=== PATIENT | female | born 1980 | race Caucasian/White ===

== ENCOUNTER 2018-06-06 06:51 | Inpatient (IN) | payer MEDICARE, MEDICAID ==
[2018-06-02 10:26] LABS: BASOPHILS # (AUTO) 0.1 X10'3 (0-0.2); BASOPHILS % (AUTO) 0.8 % (0-1); EOSINOPHILS # (AUTO) 0.1 X10'3 (0-0.9); EOSINOPHILS % (AUTO) 2.4 % (0-6); LYMPHOCYTES # (AUTO) 1.8 X10'3 (1.1-4.8); LYMPHOCYTES % (AUTO) 29.7 % (21-51); MEAN CORPUSCULAR HEMOGLOBIN 31.8 PG (27.0-31.0); MEAN CORPUSCULAR HGB CONC 33.4 % (33.0-36.5); MEAN PLATELET VOLUME 8.3 FL (7.4-10.4); MONOCYTES # (AUTO) 0.5 X10'3 (0-0.9); MONOCYTES % (AUTO) 7.7 % (2-12); NEUTROPHILS # (AUTO) 3.6 X10'3 (1.8-7.7); NEUTROPHILS % (AUTO) 59.4 % (42-75); PRE OP HEMATOCRIT 38.6 % (35.0-45.0); PRE OP HEMOGLOBIN 12.9 g/dL (12.0-16.0); PRE OP PLATELET COUNT 326 X10'3 (140-440); RED BLOOD COUNT 4.06 X10'6 (4.20-5.60); RED CELL DISTRIBUTION WIDTH 13.8 % (11.5-14.5)
[2018-06-02 10:41] LABS: ALBUMIN 3.7 G/DL (3.4-5.0); ALBUMIN/GLOBULIN RATIO 1.1 (1.1-1.5); ALKALINE PHOSPHATASE 72 IU/L (46-116); BLOOD UREA NITROGEN 19 MG/DL (7-18); BUN/CREATININE RATIO 30.6 (6.6-38.0); CALCIUM 8.7 MG/DL (8.5-10.1); CHLORIDE 108 MMOL/L (99-107); CREATININE 0.62 MG/DL (0.40-0.90); PRE OP ALT 31 U/L (30-65); PRE OP ANION GAP 11 (8-16); PRE OP AST 20 U/L (10-37); PRE OP BILIRUB, TOTAL 0.3 MG/DL (0.0-1.0); PRE OP GLUCOSE 104 MG/DL (70-104); PRE OP POTASSIUM 4.1 MMOL/L (3.4-5.1); PRE OP SODIUM 144 MMOL/L (135-145); TOTAL CARBON DIOXIDE 25.5 MMOL/L (24-32); TOTAL PROTEIN 7.1 G/DL (6.4-8.2); eGFR > 90 ML/MIN
[2018-06-06] VITALS (17 sets, daily range): BP systolic 91–150; BP diastolic 46–88
[~2018-06-06] VITALS: Ht 172.7 cm; Wt 87.5 kg
[~2018-06-06 06:51] MED LIST: CARB1TAB44 PO; CARI250T PO; CYAN500011 PO; DULO-31 PO; ERGO500014 PO; FURO40TA4 PO; LEVO50TA PO; MULT-1074 PO; POTA8TAB3 PO; TOPI50TA24 PO; VITA400C67 PO; cefazolin/dext.iso 2gm/100 ML IV ONE; famotidine 20mg tablet PO ONE; ringers solution, lacted 1,000 ML IV SCH; vancomycin inj 1,500 MG in normal saline 300ml IV soln IV ONE
[2018-06-06] MEDS ORDERED: LEVO1TAB63 (07:48)
[2018-06-06] MEDS ORDERED: ceFAZolin 1000mg inj ONE (09:34)
[2018-06-06] MEDS ORDERED: ROPIVAcaine 0.5% (5mg/ml) 30ml vial ONE ×2 (09:34→10:26)
[2018-06-06] MEDS ORDERED: ketorolac trometh. 30mg/ml inj. ONE (09:34)
[2018-06-06] MEDS ORDERED: tranexamic acid inj. 900 MG in normal saline 100ml IV soln 100 ML IV ONE ×5 (09:40→16:00)
[2018-06-06] MEDS ORDERED: sevoflurane 250ml liquid IH ONE (10:17)
[2018-06-06] MEDS ORDERED: MIDAZolam 5mg/5ml vial ONE (10:26)
[2018-06-06] MEDS ORDERED: fentaNYL/PF 50MCG/1 ML 2ML syringe ONE (10:26)
[2018-06-06] MEDS ORDERED: ringers solution, lacted 1,000 ML IV SCH (11:28)
[2018-06-06] MEDS ORDERED: meperidine/PF 25mg/ml syringe IV PRN ×3 (11:30)
[2018-06-06] MEDS ORDERED: ondansetron/PF 4mg/2ml inj IV PRN ×2 (11:30→13:10)
[2018-06-06] MEDS ORDERED: proCHLORperazine 10 MG/2 ml inj IV PRN (11:30)
[2018-06-06] MEDS ORDERED: morphine 4 MG/ML inj SYRINge IV PRN ×2 (11:30)
[2018-06-06] MEDS ORDERED: ROPIVAcaine 0.2%/PF PAIN PUMP 550 ML IJ SCH (11:55)
[2018-06-06] MEDS ORDERED: dexamethasone sod phosphate 4mg/ml inj. ONE (12:52)
[2018-06-06] MEDS ORDERED: propofol inj 20 ML IV ONE ×2 (12:52)
[2018-06-06] MEDS ORDERED: ondansetron/PF 4mg/2ml inj ONE (12:52)
--- NOTE | 2018-06-06 12:55 | NUR ---
Received from OR via , accompanied by Anesthesiologist DR STARKEY and report given by Anesthesiolgist. AWAKENS TO VOICE. VITALS STABLE. DRESSING DI. DANA PAIN. LUE IN SIMPLE SLING. FINGERS WARM AND PINK.
[2018-06-06] MEDS ORDERED: HYDROmorphone 1 mg/ml syringe IV PRN (13:10)
[2018-06-06] MEDS ORDERED: diphenhydrAMINE 25mg capsule PO PRN ×2 (13:10)
[2018-06-06] MEDS ORDERED: CARISOPRODOL PO PRN (13:10)
[2018-06-06] MEDS ORDERED: oxyCODONE IR 5mg (immed. release) tablet PO PRN (13:10)
[2018-06-06] MEDS ORDERED: HYDROmorphone inj. 0.5 MG/0.5 ML DISP.SYRIN IV PRN (13:10)
[2018-06-06] MEDS ORDERED: acetaminophen 325mg tablet PO PRN ×2 (13:10→16:43)
[2018-06-06] MEDS ORDERED: bisacodyl 10mg suppository rectal RC PRN (13:10)
[2018-06-06] MEDS ORDERED: magnesium hydroxide 30ml (MOM) UD suspension PO PRN (13:10)
[2018-06-06] MEDS ORDERED: cyclobenzaprine 10mg tablet PO PRN (13:30)
[2018-06-06] MEDS: acetaminophen 325mg tablet PO SCH ×2 (14:00→20:30)
--- NOTE | 2018-06-06 14:05 | NUR ---
Report called to receiving nurse. Transferred via BED Belongings . Special Issues communicated to receiving nurse. AWAKE AND ORIWENTED. VITALS STABLE. DRESSING DI. DANA PAIN TO ORTHO RM [id number] AT THIS TIME.
--- NOTE | 2018-06-06 14:15 | NUR ---
ASSUMED CARE, RECEIVED REPORT FROM MARIA VICTORIA IVY PT A&O X4, REPORTS 0/10 PAIN, POST OP VSS STARTED, FAMILY AT BEDSIDE, WILL CONTINUE TO MONITOR.
[2018-06-06] MEDS: ketorolac tromethamine 15mg/ml inj. IV SCH ×2 (15:01→20:28)
[2018-06-06] MEDS: potassium cl 20mEq in 1/2 NS 1,000 ML IV SCH ×3 (16:14→23:38)
[2018-06-06] MEDS ORDERED: CARI350T PO (16:41)
[2018-06-06] MEDS: ceFAZolin 1GM/D5W- ADD-VANTAGE 50 ML IV SCH ×2 (16:58→23:55)
--- NOTE | 2018-06-06 18:05 | NUR ---
Problems reprioritized. Patient report given, questions answered & plan of care reviewed with CHRISTOFER IVY.
--- NOTE | 2018-06-06 18:40 | NUR ---
Patient in room ORTHO 4016. I have received report from BIJU Mack and had the opportunity to ask questions and assume patient care. Patient sleeping at this time.
[2018-06-06] MEDS ORDERED: VITAMIN E ACETATE PO SCH (20:00)
[2018-06-06] MEDS ORDERED: vancomycin/NS 1 GM ADD-VANTAGE 250 ML IV SCH (20:00)
[2018-06-06] MEDS ORDERED: TOPIRAMATE PO SCH (20:00)
[2018-06-06] MEDS: duloxetine 30mg CAPSULE.DR PO SCH (20:28)
[2018-06-06] MEDS: topiramate 25mg tablet PO SCH (20:29)
[2018-06-06] MEDS: potassium chloride 8mEq ER tablet PO SCH (20:30)
[2018-06-06] MEDS: vitamin E 400 unit capsule PO SCH (20:30)
[2018-06-06] MEDS: gabapentin 300mg capsule PO SCH (20:31)
[2018-06-06] MEDS ORDERED: carbidoba-levodopa 25-100mg tablet PO SCH (21:00)
[2018-06-06] MEDS ORDERED: LEVODOPA PO SCH (21:00)
[2018-06-06] MEDS ORDERED: CARBIDOPA PO SCH (21:00)
[2018-06-06] MEDS ORDERED: sennosides 8.6mg tablet PO SCH (21:00)
[2018-06-06] MEDS ORDERED: mag hydrox/Alum hydrox/simeth 30ml oral suspension PO ONE (21:40)
[2018-06-07] MEDS: acetaminophen 325mg tablet PO SCH ×3 (01:24→13:29)
[2018-06-07] MEDS: ketorolac tromethamine 15mg/ml inj. IV SCH ×2 (01:24→08:15)
[2018-06-07] MEDS: potassium cl 20mEq in 1/2 NS 1,000 ML IV SCH (04:00)
[2018-06-07 06:00] VITALS: BP 95/52
--- NOTE | 2018-06-07 06:20 | NUR ---
Problems reprioritized. Patient report given, questions answered & plan of care reviewed with BIJU Alvarez.
--- NOTE | 2018-06-07 06:30 | NUR ---
Assumed care of pt. Pt awake and alert. Pt reported L shoulder pain. ON Q Pump increased to 8ml/hr per protocol for pain. Powder pack also changed for comfort.
[2018-06-07] MEDS ORDERED: levoTHYROXINE 25mcg tablet PO SCH (07:00)
[2018-06-07 07:08] LABS: BASOPHILS % (AUTO) 0.1 % (0-1); EOSINOPHILS # (AUTO) 0.2 X10'3 (0-0.9); EOSINOPHILS % (AUTO) 1.5 % (0-6); HEMATOCRIT 29.2 % (35.0-45.0); HEMOGLOBIN 10.1 g/dl (12.0-16.0); LYMPHOCYTES # (AUTO) 1.8 X10'3 (1.1-4.8); MEAN CORPUSCULAR HEMOGLOBIN 32.6 PG (27.0-31.0); MEAN CORPUSCULAR HGB CONC 34.5 % (33.0-36.5); MEAN CORPUSCULAR VOLUME 94.5 FL (78-98); MEAN PLATELET VOLUME 9.1 FL (7.4-10.4); MONOCYTES # (AUTO) 0.6 X10'3 (0-0.9); MONOCYTES % (AUTO) 5.9 % (2-12); NEUTROPHILS # (AUTO) 8.2 X10'3 (1.8-7.7); NEUTROPHILS % (AUTO) 75.5 % (42-75); PLATELET COUNT 224 X10'3 (140-440); RED BLOOD COUNT 3.09 X10'6 (4.20-5.60); RED CELL DISTRIBUTION WIDTH 13.5 % (11.5-14.5); WHITE BLOOD COUNT 10.8 X10'3 (4.5-11.0)
[2018-06-07 07:30] LABS: ANION GAP 9 (8-16); CHLORIDE 108 MMOL/L (99-107); POTASSIUM 3.8 MMOL/L (3.5-5.1); SODIUM 139 MMOL/L (135-145); TOTAL CARBON DIOXIDE 21.7 MMOL/L (24-32)
[2018-06-07] MEDS ORDERED: CYANOCOBALAMIN PO SCH (08:00)
[2018-06-07] MEDS ORDERED: multivitamins, therapeutics tablet PO SCH (08:00)
[2018-06-07] MEDS ORDERED: MULTIVITAMIN PO SCH (08:00)
[2018-06-07] MEDS ORDERED: furosemide 40mg tablet PO SCH (08:00)
[2018-06-07] MEDS ORDERED: cyanocobalamin 500mcg tablet PO SCH (08:00)
[2018-06-07] MEDS ORDERED: non-formulary drug (Levothyroxine Sodium (Synthroid) 1 TAB) PO SCH (08:00)
[2018-06-07] MEDS: gabapentin 300mg capsule PO SCH ×2 (08:11→13:29)
[2018-06-07] MEDS: duloxetine 30mg CAPSULE.DR PO SCH (08:11)
[2018-06-07] MEDS: potassium chloride 8mEq ER tablet PO SCH ×2 (08:12→13:29)
[2018-06-07] MEDS: topiramate 25mg tablet PO SCH (08:14)
[2018-06-07] MEDS: vitamin E 400 unit capsule PO SCH (08:25)
[2018-06-07] MEDS ORDERED: aspirin 325mg tablet PO SCH (08:30)
[2018-06-07] MEDS: oxyCODONE IR 5mg (immed. release) tablet PO PRN ×2 (09:22→13:29)
--- NOTE | 2018-06-07 09:30 | NUR ---
ON Q pump increased to 10ml/hr for L Shoulder pain.
[2018-06-07 10:09] VITALS: BP 97/53
--- NOTE | 2018-06-07 11:35 | NUR ---
ON Q Pump increased to 12ml/hr for continued L Shoulder pain. Oxy IR 10mg given previously as well for pain management.
--- NOTE | 2018-06-07 14:06 | NUR ---
Pt s/p surgery to left shoulder. Pt currently on a regular diet with documented PO intake 100% meeting nutrient needs with adequate protein to aid in wound healing. Will continue to follow. Addendum: 06/07/18 at [address] Amended: Links added.
[2018-06-07 14:15] VITALS: BP 103/55
[2018-06-07] MEDS ORDERED: celeCOXIB 100mg capsule PO SCH (20:00)
[2018-06-08] MEDS ORDERED: acetaminophen 325mg tablet PO PRN (13:10)
== END 2018-06-07 14:25 | disposition home or self-care (01) | DRG 483 ==
LOC: PAS IN 06:51 → EDSTATUS 10:00 → ORTHO 4S 14:15
PROVIDERS: ADMIT Orthopaedic Surgery; ATTEND Orthopaedic Surgery
PROC: 0RRK0JZ Replacement of Left Shoulder Joint with Synthetic Substitute, Open Approach (ICD-10-PCS; principal; 2018-06-06 10:17)
DX: M19.112 Post-traumatic osteoarthritis, left shoulder (principal); D62 Acute posthemorrhagic anemia; E03.9 Hypothyroidism, unspecified; G89.29 Other chronic pain; M79.7 Fibromyalgia; E11.9 Type 2 diabetes mellitus without complications
CPT/HCPCS: 36415; 80051; 80053; 82948; 85025; 87070; 97110; 97116; 97161; 97530; A4565; A7000; C1713; C1776; G0378; J0690; J1100; J1885; J2250; J2405; J2704; J2795; J3010; J3370; J7030; J7040; J7120

== ENCOUNTER 2020-07-09 00:26 | Emergency (ER) | payer MEDICARE, MEDICAID ==
[~2020-07-09] VITALS: Ht 170.2 cm; Wt 90.0 kg
[~2020-07-09 00:26] MED LIST changes: -CARI250T PO; +CARI350T PO; +LEVO1TAB63; -cefazolin/dext.iso 2gm/100 ML IV ONE; -famotidine 20mg tablet PO ONE; -ringers solution, lacted 1,000 ML IV SCH; -vancomycin inj 1,500 MG in normal saline 300ml IV soln IV ONE
[2020-07-09 01:23] VITALS: BP 132/68
--- NOTE | 2020-07-09 01:23 | NUR ---
peoblem with left shoulder since debridement
[2020-07-09] MEDS ORDERED: HYDROcodone/acetaminophen 10/325mg tab PO ONE (01:35)
[2020-07-09] MEDS ORDERED: HYDR-3965 PO (01:38)
== END 2020-07-09 02:05 | disposition home or self-care (01) ==
LOC: ER 00:26
DX: S46.092A Other injury of muscle(s) and tendon(s) of the rotator cuff of left shoulder, initial encounter (principal); G89.29 Other chronic pain; Z98.890 Other specified postprocedural states; Z88.2 Allergy status to sulfonamides; Z88.8 Allergy status to other drugs, medicaments and biological substances; Z79.899 Other long term (current) drug therapy; X50.0XXA Overexertion from strenuous movement or load, initial encounter; Y93.89 Activity, other specified; Y92.89 Other specified places as the place of occurrence of the external cause; Y99.8 Other external cause status
CPT/HCPCS: 29105; 73030; 99283

== ENCOUNTER 2020-09-03 09:39 | Emergency (ER) | payer MEDICARE, MEDICAID ==
[~2020-09-03] VITALS: Ht 170.2 cm; Wt 95.0 kg
[2020-09-03 10:20] LABS: CLARITY,URINE SLIGHTLY CLOUDY (Clear); COLOR,URINE STRAW (Yellow); GLUCOSE, URINE NEGATIVE (Neg); KETONES,URINE NEGATIVE (Neg); LEUKOCYTE ESTERASE ,URINE TRACE (Neg); NITRITES, URINE NEGATIVE (Neg); OCCULT BLOOD,URINE NEGATIVE (Neg); PROTEIN,URINE NEGATIVE (Neg); UROBILINOGEN,URINE 0.2 E.U/dL (0.2-1.0)
[2020-09-03 10:24] LABS: UA COLLECTION TYPE CLN CATCH MIDSTREAM
[2020-09-03 10:27] LABS: BACTERIA,URINE FEW /HPF (Neg); RBC,URINE 0-2 /HPF (0-2); SQUAMOUS EPITHELIAL CELL,UR FEW /LPF (FEW); WBC,URINE 0-4 /HPF (0-4)
[2020-09-03 10:55] LABS: BASOPHILS # (AUTO) 0.1 X10'3 (0-0.2); BASOPHILS % (AUTO) 1.2 % (0-1); EOSINOPHILS # (AUTO) 0.1 X10'3 (0-0.9); EOSINOPHILS % (AUTO) 1.8 % (0-6); HEMATOCRIT 33.6 % (35.0-45.0); HEMOGLOBIN 11.4 g/dl (12.0-16.0); LYMPHOCYTES % (AUTO) 17.6 % (21-51); MEAN CORPUSCULAR HEMOGLOBIN 31.5 PG (27.0-31.0); MEAN CORPUSCULAR HGB CONC 33.8 g/dL (33.0-36.5); MEAN CORPUSCULAR VOLUME 93.3 FL (78-98); MEAN PLATELET VOLUME 7.9 FL (7.4-10.4); MONOCYTES # (AUTO) 0.2 X10'3 (0-0.9); NEUTROPHILS # (AUTO) 4.1 X10'3 (1.8-7.7); NEUTROPHILS % (AUTO) 75.4 % (42-75); PLATELET COUNT 323 X10'3 (140-440); RED CELL DISTRIBUTION WIDTH 14.2 % (11.5-14.5); WHITE BLOOD COUNT 5.5 X10'3 (4.5-11.0)
[2020-09-03 11:24] LABS: ALANINE AMINOTRANSFERASE 39 U/L (12-78); ALBUMIN 3.3 G/DL (3.4-5.0); ALBUMIN/GLOBULIN RATIO 0.9 (1.1-1.5); ALKALINE PHOSPHATASE 113 IU/L (46-116); ANION GAP 12 (8-16); ASPARTATE AMINO TRANSFERASE 33 U/L (10-37); BILIRUBIN,TOTAL 0.2 MG/DL (0.1-1.0); BLOOD UREA NITROGEN 21 MG/DL (7-18); BUN/CREATININE RATIO 31.8 (6.6-38.0); CALCIUM 8.5 MG/DL (8.5-10.1); CHLORIDE 105 MMOL/L (99-107); CREATININE 0.66 MG/DL (0.40-0.90); GLUCOSE 94 MG/DL (70-104); POTASSIUM 3.9 MMOL/L (3.5-5.1); SODIUM 139 MMOL/L (135-145); TOTAL CARBON DIOXIDE 22.4 MMOL/L (24-32); TOTAL PROTEIN 6.9 G/DL (6.4-8.2); eGFR > 90 ML/MIN
[2020-09-03] MEDS ORDERED: LORazepam 2 mg/ml vial IV ONE (12:55)
[2020-09-03] MEDS ORDERED: normal saline 1000ML IV soln IVB ONE (12:55)
[2020-09-03] MEDS ORDERED: morphine 4 MG/ML inj SYRINge IV ONE (12:55)
[2020-09-03] MEDS ORDERED: LIDOcaine Viscous 15ml cup MM ONE (13:35)
[2020-09-03] MEDS ORDERED: mag hydrox/Alum hydrox/simeth 30ml oral suspension PO ONE (13:35)
[2020-09-03 14:22] VITALS: BP 105/61
[2020-09-03] MEDS ORDERED: FLUC200T28 PO (14:25)
== END 2020-09-03 15:10 | disposition home or self-care (01) ==
LOC: ER 09:41
DX: M25.562 Pain in left knee (principal); K13.79 Other lesions of oral mucosa; G89.29 Other chronic pain; M79.7 Fibromyalgia; R51.9 Headache, unspecified; Z48.01 Encounter for change or removal of surgical wound dressing; R42 Dizziness and giddiness; Z88.8 Allergy status to other drugs, medicaments and biological substances; Z88.2 Allergy status to sulfonamides; Z79.899 Other long term (current) drug therapy
CPT/HCPCS: 36415; 71045; 80053; 81001; 83605; 84145; 85025; 87040; 87088; 93971; 96374; 96375; 99285; J2060; J2270; J7030

== ENCOUNTER 2020-10-03 05:15 | Day surgery (SDC) | payer MEDICARE, MEDICAID ==
[2020-09-26 16:15] LABS: BASOPHILS % (AUTO) 0.9 % (0-1); EOSINOPHILS # (AUTO) 0.2 X10'3 (0-0.9); EOSINOPHILS % (AUTO) 4.7 % (0-6); LYMPHOCYTES # (AUTO) 2.3 X10'3 (1.1-4.8); LYMPHOCYTES % (AUTO) 44.9 % (21-51); MEAN CORPUSCULAR HEMOGLOBIN 30.6 PG (27.0-31.0); MEAN CORPUSCULAR HGB CONC 32.7 g/dL (33.0-36.5); MEAN CORPUSCULAR VOLUME 93.4 FL (78-98); MEAN PLATELET VOLUME 8.4 FL (7.4-10.4); MONOCYTES # (AUTO) 0.3 X10'3 (0-0.9); MONOCYTES % (AUTO) 6.6 % (2-12); NEUTROPHILS # (AUTO) 2.2 X10'3 (1.8-7.7); NEUTROPHILS % (AUTO) 42.9 % (42-75); PRE OP HEMATOCRIT 35.5 % (35.0-45.0); PRE OP HEMOGLOBIN 11.6 g/dL (12.0-16.0); PRE OP PLATELET COUNT 281 X10'3 (140-440); RED CELL DISTRIBUTION WIDTH 14.2 % (11.5-14.5)
[2020-09-26 16:27] LABS: ALBUMIN 3.5 G/DL (3.4-5.0); ALKALINE PHOSPHATASE 85 IU/L (46-116); BLOOD UREA NITROGEN 18 MG/DL (7-18); BUN/CREATININE RATIO 29.5 (6.6-38.0); CALCIUM 8.6 MG/DL (8.5-10.1); CHLORIDE 107 MMOL/L (99-107); CREATININE 0.61 MG/DL (0.40-0.90); PRE OP ALT 23 U/L (30-65); PRE OP ANION GAP 10 (8-16); PRE OP AST 24 U/L (10-37); PRE OP BILIRUB, TOTAL 0.2 MG/DL (0.0-1.0); PRE OP GLUCOSE 86 MG/DL (70-104); PRE OP POTASSIUM 3.9 MMOL/L (3.4-5.1); PRE OP SODIUM 141 MMOL/L (135-145); TOTAL CARBON DIOXIDE 24.2 MMOL/L (24-32); eGFR > 90 ML/MIN
[~2020-10-03] VITALS: Ht 167.6 cm; Wt 97.4 kg
[2020-10-03] VITALS (14 sets, daily range): BP systolic 109–135; BP diastolic 62–89
[~2020-10-03 05:15] MED LIST changes: +BIOT5000 PO; +BUSP15TA3 PO; +CALC-1074 PO; -CARI350T PO; +CHOL500050 PO; -CYAN500011 PO; +CYCL-1 PO; -ERGO500014 PO; -LEVO1TAB63; +OXYC10TA47 PO; +VITA-268 PO; +ringers solution, lacted 1,000 ML IV SCH
[2020-10-03] MEDS ORDERED: famotidine 20mg tablet PO ONE (05:30)
[2020-10-03] MEDS ORDERED: sevoflurane 250ml liquid IH ONE (06:54)
[2020-10-03] MEDS ORDERED: cloNIDine hcl/PF 100mcg/ml inj ONE (06:57)
[2020-10-03] MEDS ORDERED: fentaNYL/PF 50MCG/1 ML 2ML syringe ONE (07:02)
[2020-10-03] MEDS ORDERED: midazolam 1 mg/ML 2ml injection ONE (07:03)
[2020-10-03] MEDS ORDERED: triamcinolone acetonide 40mg/ml inj ONE (07:14)
[2020-10-03] MEDS ORDERED: BUPIVAcaine/PF 2.5 mg/ml (0.25%) 30ml vial ONE (07:14)
[2020-10-03] MEDS ORDERED: ROPIVAcaine 0.5% (5mg/ml) 30ml vial ONE (07:18)
[2020-10-03] MEDS ORDERED: propofol inj 20 ML IV ONE (07:18)
[2020-10-03] MEDS ORDERED: LIDOcaine 2% (20mg/ml) 5ml vial ONE (07:19)
[2020-10-03] MEDS ORDERED: dexamethasone sod phosphate 4mg/ml inj. ONE (07:19)
[2020-10-03] MEDS ORDERED: ondansetron/PF 4mg/2ml inj ONE (07:22)
[2020-10-03] MEDS ORDERED: morphine 2 MG/ML inj. syringe IV PRN (07:30)
[2020-10-03] MEDS ORDERED: meperidine/PF 25mg/ml syringe IV PRN (07:30)
[2020-10-03] MEDS ORDERED: hydrALAZINE 20mg/ml inj. IV PRN (07:30)
[2020-10-03] MEDS ORDERED: proCHLORperazine 10 MG/2 ml inj IV PRN (07:30)
[2020-10-03] MEDS ORDERED: ondansetron/PF 4mg/2ml inj IV PRN (07:30)
[2020-10-03] MEDS ORDERED: HYDROmorphone/PF 0.2 MG/ML SYRINGE IV PRN ×2 (07:30)
[2020-10-03] MEDS ORDERED: acetaminophen 1,000mg/100ml IV 100 ML IV PRN (07:30)
[2020-10-03] MEDS ORDERED: labetalol 20mg/4ml (5mg/ml) syringe IV PRN (07:30)
[2020-10-03] MEDS ORDERED: morphine 4 MG/ML inj SYRINge IV PRN (07:30)
[2020-10-03] MEDS ORDERED: ringers solution, lacted 1,000 ML IV SCH (07:30)
--- NOTE | 2020-10-03 07:30 | NUR ---
ADMITTED TO PACU FROM OR ACCOMPANIED BY ANESTHESIA. INTIAL PHYSICAL ASSESSMENT DONE AND RECORDED. REPORT RECEIVED FROM ANESTHESIA.
[2020-10-03] MEDS ORDERED: HYDROcodone/acetaminophen 10/325mg tab PO PRN (07:40)
--- NOTE | 2020-10-03 09:30 | NUR ---
DISCHARGE CRITERIA MET, DISCHARGE INSTRUCTIONS GIVEN, DEMONSTRATES VERBAL UNDERSTANDING. DISCHARGED HOME IN GOOD CONDITION.
== END 2020-10-03 09:30 | disposition home or self-care (01) ==
LOC: PAS 05:15
PROVIDERS: ATTEND Orthopaedic Surgery
DX: M24.662 Ankylosis, left knee (principal); M17.0 Bilateral primary osteoarthritis of knee; E11.9 Type 2 diabetes mellitus without complications; M19.90 Unspecified osteoarthritis, unspecified site; E05.90 Thyrotoxicosis, unspecified without thyrotoxic crisis or storm; G43.909 Migraine, unspecified, not intractable, without status migrainosus; G25.81 Restless legs syndrome; G89.18 Other acute postprocedural pain; Z88.5 Allergy status to narcotic agent; Z88.8 Allergy status to other drugs, medicaments and biological substances; Z98.84 Bariatric surgery status; Z79.899 Other long term (current) drug therapy; Z98.890 Other specified postprocedural states; Z96.612 Presence of left artificial shoulder joint; Z86.14 Personal history of Methicillin resistant Staphylococcus aureus infection
CPT/HCPCS: 20610; 27570; 36415; 64447; 76942; 80053; 82948; 85025; J0735; J1100; J1170; J2001; J2175; J2250; J2405; J2704; J3010; J3301; J3490; A4618; J2795; J7120

== ENCOUNTER 2024-11-28 10:51 | Emergency (ER) | payer MEDICARE, MEDICAID ==
[~2024-11-28] VITALS: Ht 167.6 cm; Wt 96.8 kg
[~2024-11-28 10:51] MED LIST changes: -POTA8TAB3 PO; +POTA8TAB69 PO; +TOPI-95 PO; -TOPI50TA24 PO; -ringers solution, lacted 1,000 ML IV SCH
[2024-11-28 11:13] VITALS: BP 157/95; PULSE 80; RESP 16; TEMP 98.3; O2SAT 99
[2024-11-28] MEDS ORDERED: PERM60CR27 TOP (11:23)
--- NOTE | 2024-11-28 11:24 | Physician Documentation ---
History of Present Illness ~ Chief Complaint: Itching Stated Complaint: RASH Time Seen by MD: 11:21 Primary Medical Doctor: [facility] Source: patient Mode of Arrival: POV Exam Limitations: no limitations HPI 44-year-old with dermatologic conditions being seen by an data visualization developer has now had small red bumps to her belt line and her going the has tried several nokm-lyt-[id number] ointments and things from her primary care concerned for scabies Medication Reconciliation Allergies: Coded Allergies: Sulfa (Sulfonamide Antibiotics) (Verified Allergy, Severe, hives, 11/28/24) fentanyl (Verified Allergy, Severe, sob, tachycardia, diaphoretic, 02/17/15) bupropion HCl (Unverified Allergy, Intermediate, HIVES, 06/05/18) sulfamethoxazole (Verified Allergy, Intermediate, SEVERE RASH, HIVES, ITCHING, 06/05/18) trimethoprim (Verified Allergy, Intermediate, SEVERE RASH, HIVES, ITCHING, 06/05/18) venlafaxine HCl (Unverified Allergy, Intermediate, 06/21/09) NSAIDS (Non-Steroidal Anti-Inflamma (Verified Allergy, Unknown, 02/17/15) Uncoded Allergies: Fentnayl PATCH (Allergy, Intermediate, SOB, TACHYCARDIA, DIAPHORETIC , 02/17/15) Scheduled Biotin (Biotin), 2 TAB PO DAILY, (Reported) Buspirone HCl (Buspirone HCl), 1 TAB PO BID, (Reported) Calcium Carbonate/Vitamin D3 (Calcium 600 + Vit D3 Tablet), 1 TAB PO DAILY, (Reported) Carbidopa/Levodopa (Carbidopa-Levo 25-100 Mg Odt), 1 EACH PO HS, (Reported) Cholecalciferol (Vitamin D3) (Vitamin D3), 1 CAP PO DAILY, (Reported) Cyclobenzaprine* (Cyclobenzaprine*), 1 TAB PO TID, (Reported) Duloxetine Hcl* (Cymbalta*), 60 MG PO BID, (Reported) Furosemide (Furosemide), 1 TAB PO DAILY, (Reported) Levothyroxine Sodium (Synthroid), 1 TAB PO DAILY, (Reported) Multivitamin (Multi-Vitamin Daily), 1 EACH PO BID, (Reported) Permethrin 5% Cream* (Elimite 5% Cream*), 1 APPLIC TOP ONCE Potassium Chloride (Klor-Con 8), 1 TAB PO TID, (Reported) Topiramate (Topiramate), 2 TAB PO Q12H, (Reported) Vitamin B Complex (B Complex), 1 TAB PO DAILY, (Reported) Vitamin E Acetate (Vitamin E), 1 CAP PO TID, (Reported) Scheduled PRN Oxycodone Hcl (Oxycodone Hcl), 1 TAB PO QID PRN for pain, (Reported) Past Medical History Past Medical History: No Pertinent History, Chronic Back Pain, Fibromyalgia Past Surgical History: orthopedic surgeries Patient History: (DM Type 2) Diabetes mellitus type 2 FATHER, Onset:50's - 60 FAMILY/OTHER (DM Type1) Diabetes mellitus type 1 FAMILY/OTHER, Onset:17 Alcohol Use: None Drug Use: none Lives with: Family Lives In: Home Review of Systems All Other Systems at this time: Reviewed and Negative Integumentary: Reports: see HPI Physical Exam Vital Signs: RN Vital Signs have been reviewed: Yes, Temperature: 98.3, Source: Temporal, Heart Rate: 80, Respiratory Rate: 16, BP: 157/95, Pulse Oximetry: 99, Weight: 96.800 Oxygen Flow Rate: 0 Physical Exam General: Alert, no apparent distress. Respiratory: Lungs clear, no respiratory distress. Chest: No accessory muscle use. Cardiovascular: Regular rate and rhythm, no murmurs. Gastrointestinal: Soft, nontender, nondistended. Bowels sounds present. Extremities: Normal range of motion, no deformity. Neurologic: Oriented x4. Psychiatric: Normal mood and affect. Skin: Scabies type rash to beltline groin and inner thighs Progress Results/Orders Results/Orders Vital Signs 11/28/24 11:13 Temp 98.3 Pulse 80 Resp 16 B/P (MAP) 157/95 Pulse Ox 99 O2 Flow Rate 0 Medical Decision Making Findings Due to the scabies like lesions multiple steroid creams and itching permethrin cream prescribed follow up with primary care Departure Time of Disposition: 11:22 Disposition: 01 HOME / SELF CARE / HOMELESS Impression: Primary Impression: Scabies Additional Impression: Itching Condition: Stable Discharge Instructions: Scabies, Pediatric Additional Instructions: He is cream as prescribed follow up with primary care and dermatology as recommended. Referrals: NO PRIMARY CARE PROVIDER (PCP) Prescriptions Permethrin 5% Cream* (Elimite 5% Cream*) 60 Gm Cream.gm. 1 APPLIC TOP ONCE, #60 GM massage into skin from head to soles of feet one time, leave on for 8-14 hours then remove by thorough washing Prov: BARBIE THAPA NP 11/28/24 Education Educated: Patient Educated regarding: diagnosis, treatment, need for follow up Signature Scribe Signature: No scribe Attestation: The note accurately reflects work and decisions made by me.Barbie SO 11/28/24 11:23 BARBIE THAPA NP Nov 28, 2024 11:24
== END 2024-11-28 12:21 | disposition home or self-care (01) ==
LOC: ER 10:53
DX: B86 Scabies (principal); L29.9 Pruritus, unspecified; E11.9 Type 2 diabetes mellitus without complications; Z88.1 Allergy status to other antibiotic agents; Z88.2 Allergy status to sulfonamides; Z88.5 Allergy status to narcotic agent; Z88.6 Allergy status to analgesic agent; Z88.8 Allergy status to other drugs, medicaments and biological substances
CPT/HCPCS: 99282

== ENCOUNTER 2025-04-27 15:06 | Outpatient (CLI) | payer MEDICARE, MEDICAID ==
[~2025-04-27 15:06] MED LIST changes: +ASCO500T10 PO; +ASPI-147 PO; +ASPI81TA53 PO; -BUSP15TA3 PO; -CALC-1074 PO; -CARB1TAB44 PO; +CETI10CA PO; -CYCL-1 PO; +DIAZ2TAB3 PO; -DULO-31 PO; +ESCI20TA39 PO; +FERR-119 PO; -FURO40TA4 PO; +METH-797 PO; +OMEP40CA21 PO; +OXYC-658 PO; -OXYC10TA47 PO; -POTA8TAB69 PO; +TUMERIC PO; +[UNRECOGNIZED DRUG - OTHER] PO
--- NOTE | 2025-04-27 16:26 | RADIOLOGY REPORT ---
CLINICAL HISTORY: INFECTION FOLLOWING A PROCEDURE, OTHER SURGICAL SITE, INIT TECHNIQUE: CT of the chest was performed without intravenous contrast. This exam was performed according to our departmental dose optimization program. Up-to-date CT equipment and radiation dose reduction techniques are utilized as appropriate. COMPARISON: None FINDINGS: Lower Neck: Unremarkable Axilla, Mediastinum and Elizabeth: No axillary or mediastinal lymphadenopathy. Limited evaluation of the elizabeth in the absence of intravenous contrast. There is small amount of substernal fluid most pronounced posterior to the manubrium and upper to mid sternal body. The fluid posterior to the upper to mid sternal body appears at least partially loculated and measures 3.4 cm craniocaudal on series 602, image 68. Heart and Great Vessels: Normal-sized heart with small pericardial effusion. The thoracic aorta is normal in caliber. Central pulmonary arteries are normal caliber. At least mild calcified coronary artery disease. Airway, Lungs and Pleura: Trachea and central airways are patent. No airspace consolidation, pleural effusion, or pneumothorax. Linear bibasilar scarring or atelectasis. Upper Abdomen: Prior Jessica-en-Y gastric bypass surgery partially imaged. No acute abnormality. Chest Wall and Osseous Structures: Minimally displaced fractures of the posterior right 1st and 2nd ribs with some surrounding callus. Prior left shoulder arthroplasty. Posterior spinal fixation hardware extends from the lower cervical spine extending to T1 and T2 with bilateral rods and transpedicular screws. Partially imaged ACDF in the lower cervical spine. Posterior spinal fixation hardware is seen at T9 -T12 with bilateral rods and transpedicular screws which are Bilateral at all levels aside from T11 which only has a right transpedicular screw. Bone graft material about the posterior elements present in the lower thoracic spine. Hardware components are intact. Prior median sternotomy with nonunited sternotomy. There is soft tissue stranding in the midline anterior chest wall overlying the sternotomy. There Soft tissue linear scarring in the posterior midline chest wall. IMPRESSION: 1. Prior median sternotomy which is nonunited, although correlate with timing of surgery as This could be within normal postoperative limits. 2. Substernal fluid posterior to the manubrium and upper to mid sternal body. The fluid posterior to the upper to mid sternal body appears at least partially loculated. This could be postoperative in nature. Developing abscess is also in the differential in the appropriate clinical setting. 3. Mild calcified coronary artery disease. 4. Posterior spinal fixation hardware of the lower cervical spine extending to T1 and T2 and posterior spinal fixation at T9-T12. Partially imaged ACDF in the lower cervical spine. 5. Minimally displaced fractures of the posterior right 1st and 2nd ribs appearing subacute. Radiation optimization: All CT scans at this facility use at least one of these dose optimization techniques: automated exposure control mA and/or kV adjustment per patient size (includes targeted exams where dose is matched to clinical indication) or iterative reconstruction.
== END 2025-04-27 23:59 | disposition home or self-care (01) ==
LOC: RAD 15:06
PROVIDERS: ATTEND Thoracic Surgery (Cardiothoracic Vascular Surgery)
DX: T81.49XA Infection following a procedure, other surgical site, initial encounter (principal); I25.10 Atherosclerotic heart disease of native coronary artery without angina pectoris; Y92.89 Other specified places as the place of occurrence of the external cause; Z98.84 Bariatric surgery status; I31.39 Other pericardial effusion (noninflammatory); Y99.8 Other external cause status; X58.XXXA Exposure to other specified factors, initial encounter; Y93.89 Activity, other specified
CPT/HCPCS: 71250

== ENCOUNTER 2025-04-29 15:25 | Emergency (ER) | payer MEDICARE, MEDICAID ==
[~2025-04-29] VITALS: Ht 170.2 cm; Wt 99.9 kg
[2025-04-29 15:29] VITALS: TEMP 98.1
--- NOTE | 2025-04-29 15:48 | Physician Documentation ---
History of Present Illness General Chief Complaint: Post-operative complication Stated Complaint: POST OP COMPLICATIONS Time Seen by MD: 15:47 Primary Medical Doctor: [facility] History of Present Illness Initial Comments 45-year-old female who had a sternotomy for a myocardial band surgery in late March presents to the emergency room with chest pain itching to her lower sternal site and blood in his to her lower sternal wound site the patient states her pain has worsened since she was here 24 hours ago she states pain is 6/10 she states it is spreading to the right side of her chest. The patient states it hurts to touch on that right side. The patient thinks the redness has worsened she denies any fevers. The patient states that she has been having worsening of the symptoms over the last week. The patient was seen in the emergency room yesterday and sent home she tried to contact the cardiac surgeon today with no success and returns for re-evaluation. Medication Reconciliation Allergies: Coded Allergies: Sulfa (Sulfonamide Antibiotics) (Verified Allergy, Severe, hives, 04/29/25) bupropion HCl (Unverified Allergy, Intermediate, HIVES, 04/29/25) sulfamethoxazole (Verified Allergy, Intermediate, SEVERE RASH, HIVES, ITCHING, 04/29/25) trimethoprim (Verified Allergy, Intermediate, SEVERE RASH, HIVES, ITCHING, 04/29/25) venlafaxine HCl (Unverified Allergy, Intermediate, 04/29/25) acetaminophen (Verified Allergy, Mild, ITCHING, 04/29/25) hydrocodone (Verified Allergy, Mild, ITCHING, 04/29/25) oxycodone (Verified Allergy, Mild, ITCHING, 04/29/25) NSAIDS (Non-Steroidal Anti-Inflamma (Verified Allergy, Unknown, 04/29/25) adhesive (Verified Allergy, Unknown, RASH, 04/29/25) Scheduled Ascorbic Acid (Ascorbic Acid), 1 TAB PO DAILY, (Reported) Aspirin (Children's Aspirin), 81 MG PO Q24H@0830 Biotin (Biotin), 2 TAB PO DAILY, (Reported) Cetirizine Hcl (Zyrtec), 1 CAP PO DAILY, (Reported) Cholecalciferol (Vitamin D3) (Vitamin D3), 1 CAP PO DAILY, (Reported) Diazepam (Diazepam), 1 MG PO BID, (Reported) Escitalopram Oxalate (Escitalopram Oxalate), 1 TAB PO DAILY, (Reported) Ferrous Sulfate (Iron), 1 TAB PO DAILY, (Reported) Levothyroxine Sodium (Synthroid), 1 TAB PO DAILY, (Reported) Methocarbamol (Methocarbamol), 1 TAB PO QID, (Reported) Multivitamin (Multi-Vitamin Daily), 1 EACH PO BID, (Reported) Omeprazole (Prilosec), 1 CAP PO DAILY, (Reported) Topiramate (Topiramate), 2 TAB PO Q12H, (Reported) Vitamin B Complex (B Complex), 1 TAB PO DAILY, (Reported) Vitamin E Acetate (Vitamin E), 1 CAP PO TID, (Reported) [Ca Citrate Mag ], 2 TAB PO DAILY, (Reported) [Liquid Tumeric], 30 ML PO DAILY, (Reported) Scheduled PRN Aspirin/Acetaminophen/Caffeine (Excedrin Migraine Caplet), 1 TAB PO QID PRN for headache, (Reported) Tramadol Hcl (Tramadol Hcl), 1 TAB PO Q6H PRN PRN for pain Discontinued Medications Oxycodone Hcl IR* (Oxycodone IR*), 1 TAB PO Q6H PRN for moderate to severe pain Discontinued Reason: Auto Discontinued Past Medical History Past Medical History: No Pertinent History, Chronic Back Pain, Fibromyalgia Past Surgical History: orthopedic surgeries Alcohol Use: None Drug Use: none Lives with: Family Lives In: Home Review of Systems All Other Systems at this time: Reviewed and Negative Physical Exam Physical Exam Vital Signs: Temperature: 98.1, Source: Temporal, Heart Rate: 70, Respiratory Rate: 16, BP: 119/78, Pulse Oximetry: 100, Weight: 99.900 Oxygen Flow Rate: 0 Physical Exam VITALS: Reviewed and as above. GENERAL: Alert, no apparent distress. HEENT: Normocephalic, atraumatic, PERRL, EOMI, dry mucosa, no erythema RESPIRATORY: Lungs clear, normal breath sounds, no respiratory distress. CHEST: No accessory muscle use, tenderness over the right chest CV: Regular rate, rhythm, no edema, no murmur, No: JVD GI: Soft, non-tender, bowels sounds present, no rebound, guarding, or rigidity BACK: No CVA tenderness, or swelling MUSCULOSKELETAL: No deformities, no edema SKIN: Patient has an approximately 18 cm surgical wound over her sternum they bottom 5 cm there is erythema it extends a proximally 3 cm bilaterally from midline there is no purulent discharge the suture line is healed and intact the patient does have tenderness over this region NEURO: Oriented x4, No motor or sensory deficit PSYCH: Normal mood and affect, no agitation Progress Results/Orders Results/Orders Completed Orders - OHLKENRICK ADAMS MD Cbc/Diff (04/29/25 15:54) CMP (04/29/25 15:54) Procalcitonin (04/29/25 15:54) Lacticsepsis (04/29/25 15:54) C-Reactive Protein (04/29/25 16:12) Cefazolin 1gm/D5w- Add-[place] (Ancef 1 (04/29/25 17:46) Tramadol Tablet (Ultram Tablet) (04/29/25 18:15) Vital Signs 04/29/25 04/29/25 04/29/25 04/29/25 15:29 15:49 16:00 17:11 Temp 98.1 Pulse 70 64 60 Resp 16 14 20 14 B/P (MAP) 119/78 106/63 (77) 124/71 (88) Pulse Ox 100 96 100 O2 Flow Rate 0 0 0 04/29/25 04/29/25 18:02 18:26 Pulse 60 78 Resp 16 16 B/P (MAP) 121/62 (81) 120/62 Pulse Ox 100 98 O2 Flow Rate 0 Laboratory Tests Test 04/29/25 16:10 White Blood Count 7.6 Red Blood Count 4.29 Hemoglobin 13.3 Hematocrit 40.0 Mean Corpuscular Volume 93.2 Mean Corpuscular Hemoglobin 30.9 Mean Corpuscular Hemoglobin Concent 33.2 Red Cell Distribution Width 14.1 Platelet Count 270 Mean Platelet Volume 9.3 Neutrophils (%) (Auto) 63.4 Lymphocytes (%) (Auto) 22.9 Monocytes (%) (Auto) 8.7 Eosinophils (%) (Auto) 4.1 Basophils (%) (Auto) 0.9 Neutrophils # (Auto) 4.8 Lymphocytes # (Auto) 1.7 Monocytes # (Auto) 0.7 Eosinophils # (Auto) 0.3 Basophils # (Auto) 0.1 CBC Comment Sodium Level 141 Potassium Level 3.8 Chloride Level 109 H Carbon Dioxide Level 24.2 Anion Gap 8 Blood Urea Nitrogen 25 H Creatinine 0.94 H Estimated GFR/1.73 m2 64 BUN/Creatinine Ratio 26.6 H Glucose Level 105 H Lactic Acid Level 0.8 Calcium Level 8.8 Total Bilirubin 0.4 Aspartate Amino Transf (AST/SGOT) 14 Alanine Aminotransferase (ALT/SGPT) 21 Alkaline Phosphatase 93 C-Reactive Protein 1.24 H Total Protein 6.8 Albumin 3.7 Globulin 3.1 Albumin/Globulin Ratio 1.2 Procalcitonin < 0.05 Chemistry Comments Medical Decision Making Additional information obtaine: old records Findings Patient with a another visit for concerns of an infection from her sternotomy, the patient's site does not look any worse than it has been in the past the cardiac surgeon saw the patient in the emergency department and and feels the patient is stable for discharge the patient is on Levaquin. The patient will be discharged. Prior hospitalizations has been reviewed. Pulse oximetry was interpreted as normal. The patient was given 2 g of Ancef IV prior to discharge. Differential Diagnosis celluitis abscess osteomylitis Departure Disposition: HOME / SELF CARE / HOMELESS Impression: Primary Impression: Cellulitis, wound, post-operative Discharge Instructions: Cellulitis, Adult, [id number] Additional Instructions: Follow up with Dr. Santizo return for worsening of symptoms Referrals: NO PRIMARY CARE PROVIDER (PCP) Prescriptions Tramadol Hcl (Tramadol Hcl) 50 Mg Tablet 1 TAB PO Q6H PRN PRN for pain for 7 Days, #28 TAB Prov: THA BAY 04/29/25 Signature Scribe Signature: no scribe Attestation: The note accurately reflects work and decisions made by me.Kenrick Steel MD 05/01/25 20:34 KENRICK STEEL MD Apr 29, 2025 15:48
[2025-04-29 16:29] LABS: MEAN PLATELET VOLUME 9.3 FL (7.4-10.4); RED CELL DISTRIBUTION WIDTH 14.1 % (11.5-14.5)
[2025-04-29 16:59] LABS: CREATININE 0.94 MG/DL (0.40-0.90); TOTAL CARBON DIOXIDE 24.2 MMOL/L (24-32); eCRCL 73 ML/MIN; eGFR 64 ML/MIN
[2025-04-29] MEDS: ceFAZolin 1GM/D5W- ADD-VANTAGE 50 ML IV STA (17:57)
[2025-04-29 18:26] VITALS: BP 120/62; PULSE 78; RESP 16; O2SAT 98
[2025-04-29] MEDS ORDERED: TRAM50TA2 PO (20:08)
== END 2025-04-29 18:28 | disposition home or self-care (01) ==
LOC: ER 15:26
DX: T81.49XA Infection following a procedure, other surgical site, initial encounter (principal); L03.90 Cellulitis, unspecified; G89.29 Other chronic pain; M79.7 Fibromyalgia; Z88.2 Allergy status to sulfonamides; Z88.6 Allergy status to analgesic agent; Z88.5 Allergy status to narcotic agent; Z91.048 Other nonmedicinal substance allergy status; Z79.82 Long term (current) use of aspirin; Z79.899 Other long term (current) drug therapy; Z98.890 Other specified postprocedural states
CPT/HCPCS: 36415; 80053; 83605; 84145; 85025; 86140; 96365; 99285; J0690